=== PATIENT | male | born 1935 | race Caucasian/White ===

== ENCOUNTER 2016-04-16 12:08 | Emergency (ER) | payer OTHER, BC ==
[~2016-04-16] VITALS: Ht 172.7 cm; Wt 68.5 kg
[~2016-04-16 12:08] MED LIST: ADVAIR HFA120 INHALA IH; ALL DAY ALLERGY10 M3 PO; AMLODIPINE BESYL5 MG PO; ATORVASTATIN CA10 MG PO; CLOPIDOGREL75 MG PO; DOCUSATE SODIU100 MG PO; DONEPEZIL HCL5 MG PO; DRONABINOL2.5 MG PO; FLEXERIL10 MG PO; FLOMAX0.4 MG PO; KLOR-CON M2020 MEQ PO; LASIX40 MG PO; LIPITOR10 MG PO; LISINOPRIL5 MG PO; LO-DOSE ASPIRIN81 M2 PO; METOPROLOL SUCC50 MG PO; MIRTAZAPINE15 MG PO; OMEPRAZOLE20 MG PO; PERCOCET 5/31 TABLET PO; PLAVIX75 MG PO; PRILOSEC20 MG PO; QUETIAPINE FUMA25 MG PO; QUETIAPINE FUMA50 MG PO; QUININE SULFAT324 MG PO; SENNA PLUS TAB1 EACH PO; SEROQUEL12.5 MG PO; TAMSULOSIN HCL0.4 MG PO; TOPROL XL50 MG PO; TYLENOL EXTRA500 MG PO; XALATAN2.5 ML BOTH EYES
[2016-04-16 12:53] LABS: BASOPHIL COUNT 0.1 K/uL (0-0.1); EOSINOPHIL (%) 6.7 % (0-5); EOSINOPHIL COUNT 0.5 K/uL (0-0.3); HEMATOCRIT 35.6 % (38.0-50.0); IMMATURE GRANULOCYTE (%) 0.3 % (0.0-0.7); IMMATURE GRANULOCYTE COUNT 0.2 K/uL; MCH 29.9 PG (29.0-34.0); MCHC 31.7 G/DL (30.0-36.0); MCV 94.2 FL (86-99); MEAN PLAT.VOLUME 11.3 uM^3 (9.0-12.4); MONOCYTE (%) 7.1 % (3-12); MONOCYTE COUNT 0.5 K/uL (0-0.8); NEUTROPHIL (%) 70.9 % (45-76); NEUTROPHIL COUNT 5.2 K/uL (1.8-6.4); PLATELET COUNT 255 K/uL (156-360); RBC DIS.WIDTH-CV 13.5 % (11.8-14.6); RBC DIS.WIDTH-SD 44.1 % (39-53); RED BLOOD COUNT 3.78 M/uL (4.00-5.50); WHITE BLOOD COUNT 7.3 K/uL (4.1-10.2)
[2016-04-16 13:01] LABS: CHLORIDE 113 mEq/L (99-109); POTASSIUM 4.8 mEq/L (3.7-5.4); SODIUM 143 mEq/L (136-147)
[2016-04-16 13:03] LABS: GLUCOSE 164 mg/dL (70-99); INTER. NORMALIZED RATIO 1.1; PROTHROMBIN TIME 10.9 (9.2-11.2)
[2016-04-16 13:05] LABS: ANION GAP 8 MEQ/L (2-14)
[2016-04-16 13:07] LABS: GFR ESTIMATE (CALCULATED) 44 mL/min/
[2016-04-16 13:08] LABS: UREA NITROGEN (BUN) 22 mg/dL (9-23)
[2016-04-16] MEDS ORDERED: ZOFRAN4 MG PO (17:42)
[2016-04-16 18:00] VITALS: BP 189/80
[2016-04-16] MEDS ORDERED: PERCOCET 5/31 TABLET PO (19:16)
== END 2016-04-16 20:30 ==
LOC: EME 12:08
PROVIDERS: Emergency Medicine
DX: M25.551 Pain in right hip (principal); R29.6 Repeated falls; F03.90 Unspecified dementia, unspecified severity, without behavioral disturbance, psychotic disturbance, mood disturbance, and anxiety; I10 Essential (primary) hypertension; E78.5 Hyperlipidemia, unspecified; J44.9 Chronic obstructive pulmonary disease, unspecified; J45.909 Unspecified asthma, uncomplicated; Z95.1 Presence of aortocoronary bypass graft; Z79.02 Long term (current) use of antithrombotics/antiplatelets; Z79.82 Long term (current) use of aspirin; Z87.891 Personal history of nicotine dependence
CPT/HCPCS: 70450; 71010; 73502; 80048; 85025; 85610; 93005; 97530 GP; 99281; 99285; G8978 GP CK; G8979 CJ; G8987 GO CL; G8988 GO CK; J2270

== ENCOUNTER → 2016-07-05 | Outpatient (CLI) | payer OTHER, BC ==
[~2016-07-05] MED LIST changes: +ZOFRAN4 MG PO
== END ==
LOC: MRI 13:09 → RAD 14:30
DX: I73.9 Peripheral vascular disease, unspecified (principal)
CPT/HCPCS: 73725

== ENCOUNTER 2016-12-02 08:26 | Inpatient (IN) | payer OTHER, BC ==
[~2016-12-02] VITALS: Ht 177.8 cm; Wt 77.4 kg
[2016-12-02 09:10] LABS: EOSINOPHIL (%) 0.1 % (0-5); HEMATOCRIT 34.9 % (38.0-50.0); IMMATURE GRANULOCYTE (%) 0.6 % (0.0-0.7); IMMATURE GRANULOCYTE COUNT 0.1 K/uL; INSTRUMENT ABS NEUTROPHIL CT 12.1 K/uL; LYMPHOCYTE COUNT 0.4 K/uL (1.0-2.8); MCH 28.8 PG (29.0-34.0); MCHC 31.8 G/DL (30.0-36.0); MCV 90.4 FL (86-99); MEAN PLAT.VOLUME 11.4 uM^3 (9.0-12.4); MONOCYTE (%) 2.5 % (3-12); MONOCYTE COUNT 0.3 K/uL (0-0.8); NEUTROPHIL (%) 93.5 % (45-76); NEUTROPHIL COUNT 12.1 K/uL (1.8-6.4); PLATELET COUNT 283 K/uL (156-360); RBC DIS.WIDTH-CV 13.1 % (11.8-14.6); RBC DIS.WIDTH-SD 43.3 % (39-53); RED BLOOD COUNT 3.86 M/uL (4.00-5.50); WHITE BLOOD COUNT 12.9 K/uL (4.1-10.2)
[2016-12-02 09:15] LABS: INTER. NORMALIZED RATIO 1.2
[2016-12-02 09:15] LABS: ADD MIUA? YES; BILIRUBIN NEGATIVE; BLOOD MODERATE; COLOR YELLOW ((YELLOW)); GLUCOSE (STRIP) NEGATIVE; KETONES 20; LEUKOCYTES NEGATIVE; NITRITE NEGATIVE; PROTEIN (STRIP) 100; SPECIFIC GRAVITY 1.018 (1.000-1.030); UROBILINOGEN 0.2 MG/DL (0.2-1.0)
[2016-12-02 09:22] LABS: CHLORIDE 106 mEq/L (99-109); POTASSIUM 4.4 mEq/L (3.7-5.4); SODIUM 143 mEq/L (136-147)
[2016-12-02 09:22] LABS: BACTERIA RARE /HPF; EPITHELIAL CELLS RARE /HPF; MUCUS TRACE /LPF; RED BLOOD CELLS 0-5 /HPF (0-5); UCUL ADDED? NO; UNCLASSIFIED CASTS 0-5 /LPF; WHITE BLOOD CELLS 0-5 /HPF (0-5)
[2016-12-02 09:24] LABS: GLUCOSE 211 mg/dL (70-99)
[2016-12-02 09:25] LABS: ANION GAP 18 MEQ/L (2-14)
[2016-12-02 09:26] LABS: TOTAL BILIRUBIN 0.6 mg/dL (0.0-1.0)
[2016-12-02 09:28] LABS: ALKALINE PHOSPHATASE 126 IU/L (3-129); GFR ESTIMATE (CALCULATED) 31 mL/min/
[2016-12-02 09:29] LABS: TROP-I INTERPRETATION NEGATIVE; TROPONIN-I 0.07 ng/mL (0.0-0.30); UREA NITROGEN (BUN) 36 mg/dL (9-23)
[2016-12-02] MEDS ORDERED: CALCIUM 600 +1 EA16 PO (12:15)
[2016-12-02] MEDS ORDERED: TAB-A-VITE1 EACH PO (12:15)
[2016-12-02] MEDS ORDERED: ARICEPT10 MG PO (12:15)
[2016-12-02] MEDS ORDERED: LASIX20 MG PO (12:16)
[2016-12-02] MEDS ORDERED: LIPITOR10 MG PO (12:18)
[2016-12-02] MEDS ORDERED: CLARITIN,ALAVAR10 MG PO (12:18)
[2016-12-02] MEDS ORDERED: PLAVIX75 MG PO (12:18)
[2016-12-02] MEDS ORDERED: ZOFRAN ODT4 MG PO (12:19)
[2016-12-02] MEDS ORDERED: REMERON15 M2 PO (12:19)
[2016-12-02] MEDS ORDERED: MILK OF MAGN PO (12:20)
[2016-12-02] MEDS ORDERED: TYLENOL REGULA325 MG PO (12:21)
[2016-12-02] MEDS ORDERED: ALLERGY EYE DRO10 ML BOTH EYES (12:22)
[2016-12-02] MEDS ORDERED: DUONEB 2.5-0.5 M3 ML AEROSOL (12:22)
[2016-12-02] MEDS ORDERED: PERCOCET 5/31 TABLET PO (12:23)
[2016-12-02] MEDS ORDERED: ULTRAM50 MG PO (12:23)
[2016-12-02 13:40] VITALS: BP 145/89
[2016-12-02 15:19] LABS: HDL CHOLESTEROL 32 MG/DL (Desirable>=40); LDL CHOLESTEROL 57 mg/dL (Desirable<100); NON-HDL CHOLESTEROL 71 mg/dL (Desirable<160); TOTAL CHOLESTEROL 103 mg/dL (Desirable<200); TRIGLYCERIDES 68 MG/DL (Normal: <150)
[2016-12-02 16:02] VITALS: BP 169/88
[2016-12-02 17:55] LABS: POINT-OF-CARE METER ID UU14174225; POINT-OF-CARE USER ID STWAMT
[2016-12-02 19:16] LABS: Estimated Average Glucose 146 mg/dL (70-123); HEMOGLOBIN A1c (GLYCOHEMOGLOB) 6.7 % HGB (Below 5.7)
[2016-12-02 21:02] VITALS: BP 129/79
[2016-12-02 23:03] VITALS: BP 124/76
[2016-12-02 23:52] VITALS: BP 113/74
[2016-12-03 01:04] LABS: POINT-OF-CARE METER ID UU14174225
[2016-12-03 03:44] VITALS: BP 176/93
[2016-12-03 06:23] LABS: EOSINOPHIL (%) 0.1 % (0-5); HEMATOCRIT 33.8 % (38.0-50.0); IMMATURE GRANULOCYTE (%) 0.8 % (0.0-0.7); IMMATURE GRANULOCYTE COUNT 0.1 K/uL; INSTRUMENT ABS NEUTROPHIL CT 13.5 K/uL; LYMPHOCYTE COUNT 0.7 K/uL (1.0-2.8); MCH 29.7 PG (29.0-34.0); MCHC 31.7 G/DL (30.0-36.0); MCV 93.9 FL (86-99); MEAN PLAT.VOLUME 11.3 uM^3 (9.0-12.4); MONOCYTE COUNT 0.9 K/uL (0-0.8); NEUTROPHIL (%) 88.3 % (45-76); NEUTROPHIL COUNT 13.5 K/uL (1.8-6.4); PLATELET COUNT 287 K/uL (156-360); RBC DIS.WIDTH-CV 13.5 % (11.8-14.6); RBC DIS.WIDTH-SD 46.6 % (39-53); WHITE BLOOD COUNT 15.3 K/uL (4.1-10.2)
[2016-12-03 06:47] LABS: ANION GAP 14 MEQ/L (2-14); CHLORIDE 111 MEQ/L (99-109); GFR ESTIMATE (CALCULATED) 29 mL/min/; POTASSIUM 4.8 MEQ/L (3.7-5.4); SAMPLE HEMOLYSIS CHECK 0; SAMPLE ICTERIC CHECK 0; SAMPLE LIPEMIA CHECK 0; SODIUM 145 MEQ/L (136-147); UREA NITROGEN (BUN) 36 mg/dL (9-23)
[2016-12-03 06:48] LABS: GLUCOSE 109 mg/dL (70-99)
[2016-12-03 07:04] LABS: POINT-OF-CARE METER ID UU14174225
[2016-12-03 07:21] VITALS: BP 138/85
[2016-12-03 07:37] LABS: POINT-OF-CARE METER ID UU14174225
[2016-12-03 11:16] VITALS: BP 171/77
[2016-12-03 12:22] LABS: POINT-OF-CARE METER ID UU14174225
[2016-12-03 15:05] VITALS: BP 176/86
[2016-12-03 16:32] LABS: POINT-OF-CARE METER ID UU14174225
[2016-12-04 00:15] LABS: POINT-OF-CARE METER ID UU14174225
[2016-12-04 00:21] VITALS: BP 152/82
[2016-12-04 03:07] VITALS: BP 160/59
[2016-12-04 06:34] LABS: POINT-OF-CARE METER ID UU14174225
[2016-12-04 08:13] VITALS: BP 158/62
[2016-12-05 01:03] VITALS: BP 124/84
[2016-12-05 08:00] VITALS: BP 173/78
[2016-12-05] MEDS ORDERED: ATROPINE 1100 DROP/5 PO (12:37)
[2016-12-05] MEDS ORDERED: MORPHINE CON20 MG/M1 SL (12:37)
[2016-12-05] MEDS ORDERED: ATIVAN0.5 MG PO (12:37)
[2016-12-05] MEDS ORDERED: LEVSIN-SL0.125 MG SL (14:13)
[2016-12-05 16:05] VITALS: BP 193/122
== END 2016-12-05 17:30 | disposition hospice, home (50) | DRG 64 ==
LOC: EME → EDBD 08:26 → EME 08:26 → EDOF 11:28 → 5SOUTH 11:28 → ENRESERV 12:03 → EDOF 12:03 → ENRESERV 12:23 → 5EAST 13:09 → ENRESERV 14:35 → 5SOUTH 15:41
PROVIDERS: Emergency Medicine; Internal Medicine
DX: I63.512 Cerebral infarction due to unspecified occlusion or stenosis of left middle cerebral artery (principal); G81.91 Hemiplegia, unspecified affecting right dominant side; R47.01 Aphasia; R41.82 Altered mental status, unspecified; J69.0 Pneumonitis due to inhalation of food and vomit; J44.9 Chronic obstructive pulmonary disease, unspecified; I25.810 Atherosclerosis of coronary artery bypass graft(s) without angina pectoris; E11.22 Type 2 diabetes mellitus with diabetic chronic kidney disease; I12.9 Hypertensive chronic kidney disease with stage 1 through stage 4 chronic kidney disease, or unspecified chronic kidney disease; N18.3 Chronic kidney disease, stage 3 (moderate); G30.9 Alzheimer's disease, unspecified; F02.81 Dementia in other diseases classified elsewhere, unspecified severity, with behavioral disturbance; E78.5 Hyperlipidemia, unspecified; N40.0 Benign prostatic hyperplasia without lower urinary tract symptoms; G89.29 Other chronic pain; M54.9 Dorsalgia, unspecified; Z66 Do not resuscitate; Z51.5 Encounter for palliative care; I25.2 Old myocardial infarction; Z85.51 Personal history of malignant neoplasm of bladder; Z85.118 Personal history of other malignant neoplasm of bronchus and lung; Z90.2 Acquired absence of lung [part of]; Z87.891 Personal history of nicotine dependence; Z86.73 Personal history of transient ischemic attack (TIA), and cerebral infarction without residual deficits; Z79.82 Long term (current) use of aspirin
CPT/HCPCS: 70450; 70551; 71010; 71250; 80048; 80053; 80061; 80202; 81003; 82948; 83036; 83605; 84484; 85025; 85610; 85730; 87040; 93005; 93880; 94640; 94640 76; 94760; 94799; 99202; 99281; 99285; J0692; J2060; J2270; J2405; J3370; J7030; J7042; J7050